=== PATIENT | female | born 1975 | race Two or more races ===

== ENCOUNTER 2025-03-11 08:38 | Emergency (ER) | payer OTHER ==
[~2025-03-11] VITALS: Ht 149.9 cm; Wt 51.7 kg
[2025-03-11] MEDS ORDERED: LIPITOR40 M1 PO (08:44)
[2025-03-11] MEDS ORDERED: DUPIXENT P300 MG/2 M SQ (08:44)
[2025-03-11] MEDS ORDERED: PROMETRIUM200 MG PO (08:44)
[2025-03-11 10:27] LABS: BASO % 0.5 % (0.1-1.2); EOS # 0.09 (0.04-0.54); EOS % 1.2 % (0.7-7.0); LYMPH # 1.57 (1.18-3.74); LYMPH % 20.4 % (19.3-53.1); MEAN PLATELET VOLUME 10.90 fl (9.4-12.4); MONO # 0.51 (0.24-0.82); MONO % 6.6 % (4.7-12.5); NEUT # 5.43 (1.56-6.13); NEUT % 70.8 % (34.0-71.1); RED CELL DISTRIBUTION WIDTH 14.0 % (11.6-14.4)
[2025-03-11 10:42] LABS: URINE APPEARANCE Clear; URINE BILIRRUBIN Negative (NEGATIVE); URINE BLOOD NHT; URINE COLOR Yellow; URINE GLUCOSE Negative (NEGATIVE); URINE KETONE Negative (NEGATIVE); URINE LEUKOCYTE Trace; URINE NITRATE Negative; URINE PROTEIN Negative (NEGATIVE); URINE UROBILINOGEN 0.2 E.U./dl
[2025-03-11 10:43] LABS: URINE BACTERIA 949.0 uL (0.0-1933); URINE EPITHELIAL CELLS 97.0 uL (0.0-38.8); URINE RBC 8.9 uL (0.0-20.8); URINE WBC 25.5 uL (0.0-23.2)
[2025-03-11 10:59] LABS: URINE CAST 0.14 uL (0.0-1.40)
[2025-03-11 11:01] LABS: ALT/SGPT 53.0 U/L (12-78); AST/SGOT 50.0 U/L (15-37); BILIRUBIN TOTAL 0.64 mg/dL (0.3-1.2); BUN CREA RATIO 14.0 (7.0-25.0); CREATININE SERUM 0.58 mg/dL (0.55-1.02); GFR 110.04; GLOBULINA 4.2 G/DL (2.4-3.5); GLUCOSE FASTING 84.0 mg/dL (65-100); OSMOLALITY SERUM 282.0 MOSM/KG (275-295)
[2025-03-11] MEDS ORDERED: PEPCID AC20 MG PO (13:49)
[2025-03-11] MEDS ORDERED: CIPRO500 MG PO (13:49)
== END 2025-03-11 14:00 | disposition home or self-care (01) ==
LOC: ER 08:39
PROVIDERS: Preventive Medicine Public Health & General Preventive Medicine
DX: N39.0 Urinary tract infection, site not specified (principal); K29.70 Gastritis, unspecified, without bleeding